=== PATIENT | male | born 1960 | race Caucasian/White ===

== ENCOUNTER 2023-04-05 21:42 | Emergency (ER) | payer SELFPAY ==
[~2023-04-05] VITALS: Ht 177.8 cm; Wt 82.0 kg
[2023-04-05 21:51] VITALS: O2SAT 95
[2023-04-06 02:51] VITALS: BP 112/78; PULSE 72; RESP 16; TEMP 98
== END 2023-04-06 02:53 | disposition home or self-care (01) ==
LOC: ER 21:42
DX: S09.90XA Unspecified injury of head, initial encounter (principal); S53.402A Unspecified sprain of left elbow, initial encounter; S43.401A Unspecified sprain of right shoulder joint, initial encounter; F10.129 Alcohol abuse with intoxication, unspecified; X58.XXXA Exposure to other specified factors, initial encounter; Y93.89 Activity, other specified; Y92.89 Other specified places as the place of occurrence of the external cause; Y99.8 Other external cause status; Y90.0 Blood alcohol level of less than 20 mg/100 ml
CPT/HCPCS: 73030; 73070; 99284

== ENCOUNTER 2024-07-05 21:26 | Emergency (ER) | payer MEDICAID ==
[~2024-07-05] VITALS: Ht 162.6 cm; Wt 82.0 kg
[2024-07-05 21:45] VITALS: O2SAT 95
[2024-07-05] MEDS ORDERED: ACET-3524 PO (23:28)
[2024-07-05 23:45] VITALS: BP 124/67; PULSE 63; RESP 18; TEMP 36.72516; O2SAT 95
== END 2024-07-05 23:46 | disposition home or self-care (01) ==
LOC: ER 21:26
DX: R51.9 Headache, unspecified (principal); F10.20 Alcohol dependence, uncomplicated; Z98.890 Other specified postprocedural states
CPT/HCPCS: 99284